=== PATIENT | male | born 1990 | race Caucasian/White ===

== ENCOUNTER 2023-02-23 10:31 | Outpatient (CLI) | payer BC, SELFPAY ==
[2023-02-23 11:35] VITALS: BP 151/82; PULSE 98
--- NOTE | 2023-02-23 15:42 | W.PM.STED ---
Stress Test Note Date Date Seen: 02/23/23 Date of test: 02/23/23 Providers Primary care provider: Shakir Verduzco Stress test physician: Herlinda Tarango Stress Test Note Stress test ordered: Exercise Stress Test Indication for test: Dyspnea Stress test medicine: None Results discussion: Resting EKG sinus rhythm, 74 beats per minute Resting blood pressure: 124/85 Stress test: Patient exercised on the treadmill following standard Qamar protocol. He exercised to 10 minutes 48 seconds, stopping due to reaching exercise capacity limits and achieving heart rate goal. He had a maximum heart rate of 178 beats per minute which was 110% of a calculated target heart rate of 161. He exercised to a level of 12.1 Mets. He had a rate pressure product of 25,872. Maximal blood pressure was 168/95. No rhythm me a, no significant ischemic change. Patient tolerated the exercise without any complaints. Impression: Subjectively negative, objectively negative EKG exercise stress test. Follow up suggested: Return to primary care provider for further evaluation and management. Discharged from the stress test in stable condition.
== END 2023-02-23 10:32 | disposition home or self-care (01) ==
LOC: STRESS 10:32
PROVIDERS: PCP Family Medicine; Visit Provider Family Medicine
DX: R06.09 Other forms of dyspnea (principal); R07.9 Chest pain, unspecified
CPT/HCPCS: 93016; 93017

== ENCOUNTER 2023-09-25 14:45 | Outpatient (RCR) | payer BC, SELFPAY ==
--- NOTE | 2023-08-28 09:09 | PT.OPEX ---
PT [place] Outpatient Eval PT [facility] Outpatient Eval Start: 08/28/23 07:19 Freq: Status: Active Protocol: Document 08/28/23 07:19 CRP (Rec: 08/28/23 09:09 CRP [id number]) E-signed By Andrei Currie PT Physical Therapy Outpatient Evaluation Insurance Information Insurance Name [employer] Medical Diagnosis Thoracic Back pain Neck Pain Referring MD Dr Verduzco Subjective Subjective Pt c.o a year of tightness lower neck, upper back that can go to the top of his head. Has had ongoing headaches every other day for the last year as well. Morning stiffness has been to the point of throwing up in the morning every once in awhile. Last 2 weeks has been getting some dizziness when the neck is painful and tight. Sxs can go from the neck into the upper back. No specific injury . 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 Feels that stretching gives some relief. No numbness or tingling. No issue with dysphagia, dysarthria, double vision or falls. No UE or LE sxs consistently. Has maybe had times of tingling into the L hand but not sure and nothing consistent. Is not impacting sleep. Dizziness can come in waves during the day. No issues rolling in bed. Pain Comments Tightness discomfort 5/10 Current Work Status Operations Administrative Assistant Objective Range of Motion Cervical ROM Flex WNL Ext WNL with CT pain Bilat rot 10% dec wiht full on PROM Bilat SB WNL Bilat shoulder ROM WNL Strength UE Myotomes WNL Palpation Increased tone mid cervical spine and upper thoracic spine Balance & Gait WNL Posture Slight forward head - slight bilat winging scap Sensation/Reflexes Sensation intact to light touch Other/Pertinent Objective CN Testing Negative throughout Smooth pursuit WNL Neck torsion smooth pursuit WNL Sharps Ashwin Test - Negative Alar lig test - Negative Cervical flex/rotation test WNL Segmental testing UPAs C4-7 painful bilat UPAs hypomob and painful upper thoracic spine Functional Test Performed & Score NDI 20 Assessment Assessment/Impression Pt presents to the clinic with ongoing neck soreness and neck tightness with associated tightness, dizziness and nausea. No noted red flags at this time subjectively or objectively. Pts sxs appear related to cervical spine weakness and painful hypomobility of the upper thoracic spine. Poor postural control of the cervical spine and level of intensity of his job may have caused over use issues with the cervicothoracic spine eventually leading to current sxs. Skilled PT necessary to incorporate ther ex, nm rahat, manual therapy and pt education to decrease pain and improve functional mobility. Plan of Care Rehabilitation Potential Excellent Physical Therapy Goals 1. Pt will be 100% independent with HEP in 6 weeks. 2. Pt will wake in the morning without neck stiffness, headaches or nausea in 10 weeks. 3. Pt will complete work day without neck tightness or headaches in 12 weeks. Coordination/Communication With Referral Source Treatment Plan/Direct Interventions Joint Mobilization,Manual Therapy,Neuromuscular Re-ed, Self-Care/Home Management, Therapeutic Activities, Therapeutic Exercises Frequency/Duration 1-2x/wk for 12 weeks Patient Will Be Discharged From Therapy Completion of LTG(s),Skills Plateau,Independent w/HEP, Independently Progressing Evaluation Billing Untimed Code Treatment Minutes 30 Complexity High Certification Information Physician Comment/Change : Physician NPI Number #
== END 2024-01-23 23:59 | disposition home or self-care (01) ==
PROVIDERS: PCP Family Medicine; Visit Provider Family Medicine
DX: M54.6 Pain in thoracic spine (principal); M54.2 Cervicalgia; Z51.89 Encounter for other specified aftercare
CPT/HCPCS: 97110; 97140; 97163

== ENCOUNTER 2024-02-13 14:24 | Outpatient (CLI) | payer OTHER, BC, SELFPAY ==
--- OUTSIDE RECORDS SUMMARY | 2024-02-16 09:16 | XMS_ITS | Clinical Summary ---
Author Organization [facility] Address [place], [place] [address] Care Team Providers Care Parts Advisor Name Role Phone Shakir Verduzco MD Primary Care Provider [phone] Allergies No known active allergies Medications Medication Sig Dispensed Refills Start Date End Date Status albuterol HFA (VENTOLIN HFA) 90 mcg/actuation inhaler Inhale 2 Puffs by mouth 4 times daily if needed. 0 04/22/2015 Active Active Problems Problem Noted Date Diagnosed Date Mild intermittent asthma without complication Immunizations Name Administration Dates Next Due AMB Influenza, IIV4 PF (=>6 mos Flulaval,Fluzone Fluarix)(Flu Clinic Only) 06/29/2020,06/18/2019 Influenza, IIV4 06/11/2018 Social History Tobacco Use Types Packs/Day Years Used Date Smoking Tobacco: Never Smokeless Tobacco: Never Alcohol Use Standard Drinks/Week Comments Yes 2 (1 standard drink = 0.6 oz pur e alcohol) Sex and Gender Information Value Date Recorded Sex Assigned at Not on file Gender Identity Not on file Sexual Orientation Not on file Obstetrics History Last Filed Vital Signs Vital Sign Reading Time Taken Comments Blood Pressure 104/62 04/22/2015 1:59 PM CDT Pulse 48 04/22/2015 1:59 PM CDT Temperature - - Respiratory Rate - - Oxygen Saturation 100% 04/22/2015 1:59 PM CDT Inhaled Oxygen Concentration - - Weight 89.8 kg (198 lb) 04/22/2015 1:59 PM CDT Height 180.3 cm (5' 11) 04/22/2015 1:59 PM CDT Body Mass Index 27.62 04/22/2015 1:59 PM CDT Plan of Treatment Health Maintenance Due Date Last Done Comments Tdap 11/04/2002 Depression screening for age 12+ 2003 HIV for age 15-65 11/04/2006 BMI (ht and wt on same day) for age 18+ 11/04/2009 Hepatitis C screening for ag e 18-79 11/04/2009 Tetanus booster 2011 COVID-19 vaccine series (2022-24 season) 2023 Influenza for age 9-49 04/21/2024 0, 06/18/2019, 06/11/2018 Pneumococcal series for age 6-64 Aged Out No longer eligible b ased on patient's age to complete this topic Care Teams Parts Advisor Relationship Specialty Start Date End Date Shakir Verduzco MD PCP - General Family Practice 05/09/16
== END 2024-02-13 14:25 | disposition home or self-care (01) ==
LOC: NFLDREF 02-16 09:13
PROVIDERS: PCP Family Medicine; Referring Provider Family Medicine; Visit Provider Family Medicine
DX: Z00.00 Encounter for general adult medical examination without abnormal findings (principal); Z13.1 Encounter for screening for diabetes mellitus; Z13.6 Encounter for screening for cardiovascular disorders
CPT/HCPCS: 80061; 82947